=== PATIENT | male | born 1980 ===

== ENCOUNTER → 2022-10-28 | Outpatient (CLI) | payer BC ==
[~2022-10-28] MED LIST: ALPR.25 PO; AMLO10 PO; AMOX500 PO; ATEN25 PO; ATENOLOL-? DOSE; CIPR500 PO; CRUTCH3 USE; HYDACE5 PO; IBUP800 PO; METR500 PO; OXYACE5T PO; OXYACE7.5T PO; PROM25 PO; RXPROM25 PO; [UNRECOGNIZED DRUG - REMARK]
[2022-10-28 19:26] LABS: Albumin, Blood 4.3 g/dL (3.4-5.0); Albumin/Globulin Ratio 1.1 (0.8-1.8); Bilirubin, Total 0.8 mg/dL (0.1-1.0); Bun/Creatinine Ratio 17.4 (12.0-20.0); Calcium, Blood 9.5 mg/dL (8.5-10.1); Creatinine, Blood 0.52 mg/dL (0.60-1.20); Potassium, Blood 3.9 mmol/L (3.5-5.5); Total Protein, Blood 8.3 g/dL (6.4-8.2)
== END | disposition home or self-care (01) ==
LOC: LAB SHORT 17:50
PROVIDERS: Physician Assistant
DX: E11.319 Type 2 diabetes mellitus with unspecified diabetic retinopathy without macular edema (principal)
CPT/HCPCS: 80053; 83036